=== PATIENT | male | born 2005 | race Caucasian/White ===

== ENCOUNTER 2025-02-16 23:39 | Observation (INO) | payer OTHER ==
[~2025-02-16 23:39] MED LIST: Iopamidol-370 76% 500 ML MDV (1 ML CHARGE) ONE
[2025-02-17 00:08] LABS: #Basophils 0.05 10x3/uL (0.0-0.2); #Eosinophils Less than 0.03 10x3/uL (0.0-0.7); #Monocytes 0.56 10x3/uL (0.11-0.59); #Neutrophils 4.56 10x3/uL (1.40-6.50); %Basophils 0.6 % (0.0-1.0); %Eosinophils 0.2 % (0.0-10.0); %Lymphocytes 39.6 % (21.0-51.0); %Monocytes 6.5 % (0.0-10.0); %Neutrophils 52.9 % (42.0-75.0); Hematocrit 48.8 % (42.0-52.0); Hemoglobin 16.3 g/dL (14.0-18.0); Mean Corpuscular Hemoglobin 31.2 pg (27.0-31.0); Mean Corpuscular Volume 93.5 fL (78.0-98.0); Platelet Count 235 10x3/uL (130-400); Red Blood Cell (RBC) Count 5.22 mill/uL (4.70-6.10); White Blood Cell (WBC) Count 8.63 10x3/uL (4.8-10.8)
[2025-02-17 00:29] LABS: ALT (SGPT) 20 U/L (Less than 45); AST (SGOT) 36 U/L (11-34); Albumin 4.7 g/dL (3.1-4.5); Alkaline Phosphatase 79 U/L (40-110); Anion Gap 17 mmol/L (10-20); BUN (Urea Nitrogen) 9 mg/dL (8.9-20.6); Bilirubin, Total 1.9 mg/dL (0.3-1.2); Calc. Creatinine Clearance 0 mL/min (70-130); Calcium 9.3 mg/dL (7.8-10.44); Carbon Dioxide 20 mmol/L (22-29); Chloride 108 mmol/L (98-107); Globulin 2.7 g/dL (2.4-3.5); Glucose 103 mg/dL (70-105); Lipase 22 U/L (8-78); Potassium 3.6 mmol/L (3.5-5.1); Sodium 141 mmol/L (136-145)
[2025-02-17] MEDS ORDERED: Ondansetron PF 4 MG/2 ML Vial ONE (00:37)
[2025-02-17 01:07] LABS: INR-International Normal Ratio 1.1; PTT 24.8 sec (22.9-36.1); Prothrombin Time 14.3 sec (12.0-14.7)
[2025-02-17] MEDS ORDERED: Methocarbamol 500 MG TAB ONE (01:35)
[2025-02-17] MEDS ORDERED: Bacitracin 1 PK ONE (01:38)
[2025-02-17] MEDS ORDERED: HYDROcodone/Acetaminophen 5/325 mg Tablet ONE (01:43)
[2025-02-17] MEDS ORDERED: hydrALAZINE 20 MG/ML VIAL SLOW IVP PRN (02:17)
[2025-02-17] MEDS ORDERED: Ondansetron PF 4 MG/2 ML Vial IVP PRN (02:17)
[2025-02-17] MEDS ORDERED: Acetaminophen 325 MG TAB PO PRN (02:17)
[2025-02-17 03:52] VITALS: BMI 21.2
[2025-02-17] MEDS: Acetaminophen 325 MG TAB PO SCH (05:16)
[2025-02-17 08:13] LABS: #Basophils 0.03 10x3/uL (0.0-0.2); #Eosinophils Less than 0.03 10x3/uL (0.0-0.7); #Monocytes 0.98 10x3/uL (0.11-0.59); #Neutrophils 8.48 10x3/uL (1.40-6.50); %Basophils 0.2 % (0.0-1.0); %Eosinophils 0.0 % (0.0-10.0); %Lymphocytes 22.6 % (21.0-51.0); %Monocytes 8.0 % (0.0-10.0); %Neutrophils 68.9 % (42.0-75.0); Hematocrit 39.2 % (42.0-52.0); Hemoglobin 13.3 g/dL (14.0-18.0); Mean Corpuscular Hemoglobin 31.8 pg (27.0-31.0); Mean Corpuscular Volume 93.8 fL (78.0-98.0); Platelet Count 146 10x3/uL (130-400); Red Blood Cell (RBC) Count 4.18 mill/uL (4.70-6.10); White Blood Cell (WBC) Count 12.32 10x3/uL (4.8-10.8)
[2025-02-17 08:22] LABS: ALT (SGPT) 26 U/L (Less than 45); AST (SGOT) 49 U/L (11-34); Albumin 3.8 g/dL (3.1-4.5); Alkaline Phosphatase 64 U/L (40-110); Anion Gap 11 mmol/L (10-20); BUN (Urea Nitrogen) 10 mg/dL (8.9-20.6); Bilirubin, Total 2.7 mg/dL (0.3-1.2); Calc. Creatinine Clearance 112 mL/min (70-130); Calcium 8.2 mg/dL (7.8-10.44); Carbon Dioxide 23 mmol/L (22-29); Chloride 110 mmol/L (98-107); Globulin 1.8 g/dL (2.4-3.5); Glucose 95 mg/dL (70-105); Potassium 3.6 mmol/L (3.5-5.1); Sodium 140 mmol/L (136-145)
[2025-02-17] MEDS: Methocarbamol 500 MG TAB PO SCH (09:54)
[2025-02-17] MEDS: Bacitracin 1 PK TOP SCH (09:55)
[2025-02-17 12:11] VITALS: BP 100/63; TEMP 98
== END 2025-02-17 15:18 | disposition home or self-care (01) ==
LOC: ERS 23:39 → SURG A 02-17 02:43
PROVIDERS: ADMIT Colon & Rectal Surgery; ATTEND Colon & Rectal Surgery
DX: S42.032A Displaced fracture of lateral end of left clavicle, initial encounter for closed fracture (principal); S27.329A Contusion of lung, unspecified, initial encounter; Z88.0 Allergy status to penicillin; W10.1XXA Fall (on)(from) sidewalk curb, initial encounter
CPT/HCPCS: 36415; 70450; 70498; 71045; 71260; 72125; 72170; 74177; 80053; 80307; 83690; 85025; 85610; 85730; 86850; 86900; 86901; 93005; 94760; G0378; G0390; J2270; J2405; J3010; J7030; Q9967

== ENCOUNTER 2025-03-23 23:37 | Emergency (ER) | payer OTHER ==
[2025-03-24] MEDS ORDERED: Dexamethasone 10 MG/ML VIAL ONE (02:26)
[2025-03-24] MEDS ORDERED: Orphenadrine Citrate 60 MG/2 ML VIAL ONE (02:26)
== END 2025-03-24 04:00 | disposition home or self-care (01) ==
LOC: ERS 23:37
DX: M54.12 Radiculopathy, cervical region (principal); S09.90XD Unspecified injury of head, subsequent encounter; V89.2XXD Person injured in unspecified motor-vehicle accident, traffic, subsequent encounter
CPT/HCPCS: 70450; 72125; 96372; J1100; J2360